=== PATIENT | male | born 1990 | race Caucasian/White ===

== ENCOUNTER 2023-03-28 11:16 | Inpatient (IN) ==
[2023-03-28] MEDS ORDERED: MORPHINE SULFATE INJ 4 MG ONE (11:25)
[2023-03-28] MEDS ORDERED: ZOFRAN INJ 4 MG VIAL ONE (11:25)
[2023-03-28] MEDS ORDERED: NS 1,000 ML IV 1,000 ML IV ONE (11:30)
[2023-03-28] MEDS ORDERED: ZOFRAN INJ 4 MG VIAL IVP ONE (11:30)
[2023-03-28] MEDS ORDERED: MORPHINE SULFATE INJ 4 MG IVP ONE (11:30)
--- NOTE | 2023-03-28 11:30 | DR.ABDMALE ---
HPI Time seen Time Seen by Provider: 03/28/23 11:29 Complaint Chief Complaint Doctors Comments: 32 y/o male, one of our EMS , presents with sudden onset of upper abdominal pain, worse of LUQ, radiates to left lower chest. Associated with nausea, diaphoresis. feels like needs to move around. Nothing makes it better, nothing makes it worse. No recent illness. Has distant cholecystectomy. Pt given IM toradol, 60 mgs, [employer], no relief. Reviewed Nurses Notes Review: Yes Source History provided by:: patient Mode of arrival Mode of Arrival: Ambulatory PMH PMH Past Medical History: Hypertension Past Surgical History: Yes Surgical History: Cholecystectomy Social History Does patient currently use any type of tobacco product: No Alcohol Use: None Do you use any recreational Drugs:: No ROS Review of Systems Constitutional: Diaphoresis Eyes: No Symptoms Reported ENTM: No Symptoms Reported Respiratoy: No Symptoms Reported Cardiovascular: Chest Pain Gastrointestinal/Abdominal: Abdominal Pain and Nausea Genitourinary: No Symptoms Reported Neurological: No Symptoms Reported Musculoskeletal: No Symptoms Reported Integumentary: No Symptoms Reported All Other Systems: Reviewed and Negative PE Vital Signs Vital Signs: Temp Pulse Resp BP Pulse Ox O2 Del Method 03/28/23 16:15 65 96 03/28/23 16:00 63 92 L 03/28/23 16:00 142/84 03/28/23 15:45 62 92 L 03/28/23 15:45 148/90 03/28/23 15:31 61 98 03/28/23 15:31 150/91 03/28/23 15:30 61 98 03/28/23 15:22 55 L 99 03/28/23 15:22 143/87 03/28/23 15:15 52 L 97 03/28/23 15:00 60 14 98 03/28/23 14:45 59 L 99 03/28/23 14:30 52 L 98 03/28/23 15:32 20 03/28/23 14:15 61 94 L 03/28/23 14:00 54 L 12 92 L 03/28/23 13:45 51 L 13 97 03/28/23 13:39 55 L 12 99 03/28/23 13:39 147/87 03/28/23 13:37 50 L 03/28/23 13:15 54 L 20 03/28/23 13:15 138/85 03/28/23 13:00 49 L 03/28/23 13:00 136/89 03/28/23 13:43 20 03/28/23 12:15 51 L 11 L 99 03/28/23 12:00 49 L 11 L 100 03/28/23 12:00 125/82 03/28/23 11:45 48 L 10 L 99 03/28/23 11:33 119/67 03/28/23 11:33 47 L 13 100 03/28/23 11:30 48 L 13 99 03/28/23 11:28 48 L 20 100 03/28/23 12:18 10 L 03/28/23 11:39 11 L 03/28/23 11:26 98.0 F 51 L 20 124/71 99 Room Air General General Appearance: Alert and In Distress Eyes Eye exam: PERRL and EOMI ENT ENT Exam: Normal Oropharynx and Mucous Membranes Moist Neck Neck Exam: Normal Inspection and Full ROM Chest Chest Inspection: Normal Inspection; negative Tenderness Respiratory Respiratory Exam: Normal Lung Sounds Bilat; negative Accessory Muscle Use or Respiratory Distress Cardiovascular Cardiovascular Exam: Regular Rate, Normal Rhythm and Normal Heart Sounds Abdominal Exam Abdominal Exam: Normal Bowel Sounds, Soft and Tenderness (LUQ, with guarding, mild rebound. ) Back Back Exam: Normal Inspection Extremeties Extremities Exam: Normal Inspection; negative Edema Skin Skin Exam: Diaphoresis (mild) COURSE Treatment Treatment: 32 y/o male with sudden LUQ abdominal pain, shortly [employer]. Seen at PCP's office, given IM toradol without help. W/u initiated. Pt given IV fluids, IV morhine/zofran. No help. Still in severe pain. Given IV diilaudid. Plain CT abd/pelvis - no acute abn, no free air, no stones. Still in pain. Additional IV dilaudid given. CTA abd done, no obvious vascular issues. Still in pain. Labs overall acceptable. Dr Ma consulted, seen in ER. h/o EGD, ? spasm of esophagous/muscle. Pt given IV ativan, finally getting some relief. Will admit, discussed with Dr Michelle. Will heep NPO after MN, EGD in the AM. ROR Labs Reviewed Laboratory Results Reviewed?: Yes Result Diagrams: 03/28/23 11:30 03/28/23 11:30 Laboratory: WBC 12.8 X10^3/uL (3.6-10.0) H 03/28/23 11:30 RBC 5.24 X10^6/uL (4.7-6.0) 03/28/23 11:30 Hgb 15.0 g/dL (13.5-18.0) 03/28/23 11:30 Hct 44.8 % (42.0-54.0) 03/28/23 11:30 MCV 85.5 fL (80.0-100.0) 03/28/23 11:30 MCH 28.6 pg (27.0-34.0) 03/28/23 11:30 MCHC 33.4 g/dL (33.0-35.0) 03/28/23 11:30 RDW 13.5 % (11.6-16.5) 03/28/23 11:30 Plt Count 342 X10^3/uL (150.0-450.0) 03/28/23 11:30 MPV 8.7 fL (7.4-11.0) 03/28/23 11:30 Neut % (Auto) 58.4 % (42.0-75.0) 03/28/23 11:30 Lymph % (Auto) 32.8 % (21.0-51.0) 03/28/23 11:30 [place] % (Auto) 5.4 % (0.0-13.0) 03/28/23 11:30 Eos % (Auto) 2.6 % (0.9-2.9) 03/28/23 11:30 Baso % (Auto) 0.8 % (0.2-1.0) 03/28/23 11:30 Neut # (Auto) 7.5 x10^3/uL (2.2-4.8) H 03/28/23 11:30 Lymph # (Auto) 4.2 X10^3/uL (1.3-2.9) H 03/28/23 11:30 [place] # (Auto) 0.7 x10^3/uL (0.3-0.8) 03/28/23 11:30 Eos # (Auto) 0.3 x10^3/uL (0.0-0.2) H 03/28/23 11:30 Baso # (Auto) 0.1 X10^3/uL (0.0-0.1) 03/28/23 11:30 Absolute Nucleated RBC 0.0 /100WBC 03/28/23 11:30 Sodium 140 mmol/L (136-145) 03/28/23 11:30 Corrected Sodium 141 mmol/L (136-145) 03/28/23 11:30 Potassium 4.1 mmol/L (3.5-5.1) 03/28/23 11:30 Chloride 101 mmol/L (98-107) 03/28/23 11:30 Carbon Dioxide 30.5 mmol/L (21-32) 03/28/23 11:30 BUN 13 mg/dL (7-18) 03/28/23 11:30 Creatinine 0.96 mg/dL (0.70-1.30) 03/28/23 11:30 Est GFR (MDRD) Af Amer > 60 (>60) 03/28/23 11:30 Est GFR (MDRD) Non-Af > 60 (>60) 03/28/23 11:30 Glucose 161 mg/dL (65-99) H 03/28/23 11:30 Lactic Acid 3.5 mmol/L (0.4-2.0) H 03/28/23 16:28 Calcium 8.6 mg/dL (8.5-10.1) 03/28/23 11:30 Corrected Calcium TNP 03/28/23 11:30 Total Bilirubin 0.60 mg/dL (0.2-1.0) 03/28/23 11:30 AST 41 Units/L (15-37) H 03/28/23 11:30 ALT 47 Units/L (12-78) 03/28/23 11:30 Alkaline Phosphatase 120 Units/L (46-116) H 03/28/23 11:30 Troponin I High Sens 5.3 ng/L (4.0-60.0) 03/28/23 14:59 Total Protein 7.6 g/dL (6.4-8.2) 03/28/23 11:30 Albumin 3.9 g/dL (3.4-5.0) 03/28/23 11:30 Globulin 3.7 g/dL (2.5-4.5) 03/28/23 11:30 Albumin/Globulin Ratio 1.1 Ratio (1.1-2.1) 03/28/23 11:30 Lipase 98 Units/L (73-393) 03/28/23 11:30 Lasb overall acceptable - has mildly elevated WBC. Lactic acid up at 3.5. EKG Rate: 51 [place]: Normal Rhythm: SB ST: Normal Opioid Opioid Risk Tool Total: 0 Total Score Risk Category: Low Risk Copyright: Omar CORTES predicting aberrant behaviors Discharge Plan Diagnosis Discharge Problem: Upper abdominal pain Discharge Plan Patient Disposition: ADMITTED INPATIENT Condition: Stable
[2023-03-28 11:34] VITALS: BMI 39.0
[2023-03-28] MEDS ORDERED: NS 1,000 ML IV 1,000 ML ONE (11:41)
--- NOTE | 2023-03-28 11:46 | EKG ---
Test Reason : LUQ abd pain Blood Pressure : */* mmHG Vent. Rate : 51 BPM Atrial Rate : 51 BPM P-R Int : 148 ms QRS Dur : 96 ms QT Int : 468 ms P-R-T Axes : 16 3 27 degrees QTc Int : 431 ms Sinus bradycardia Increased R/S ratio in V1, consider early transition or posterior infarct Abnormal ECG No previous ECGs available Confirmed by Carson Min ([id number]) on 03/30/2023 7:36:45 AM Referred By: Confirmed By: Carson Min
[2023-03-28 11:47] LABS: BASOPHILS # (AUTO) 0.1 X10^3/uL (0.0-0.1); BASOPHILS % (AUTO) 0.8 % (0.2-1.0); EOSINOPHILS # (AUTO) 0.3 x10^3/uL (0.0-0.2); EOSINOPHILS % (AUTO) 2.6 % (0.9-2.9); HEMATOCRIT 44.8 % (42.0-54.0); LYMPHOCYTES # (AUTO) 4.2 X10^3/uL (1.3-2.9); LYMPHOCYTES % (AUTO) 32.8 % (21.0-51.0); MEAN CORPUSCULAR HEMOGLOBIN 28.6 pg (27.0-34.0); MEAN CORPUSCULAR HGB CONC 33.4 g/dL (33.0-35.0); MEAN CORPUSCULAR VOLUME 85.5 fL (80.0-100.0); MEAN PLATELET VOLUME 8.7 fL (7.4-11.0); MONOCYTES # (AUTO) 0.7 x10^3/uL (0.3-0.8); MONOCYTES % (AUTO) 5.4 % (0.0-13.0); NEUTROPHILS # (AUTO) 7.5 x10^3/uL (2.2-4.8); NEUTROPHILS % (AUTO) 58.4 % (42.0-75.0); PLATELET COUNT 342 X10^3/uL (150.0-450.0); RED BLOOD COUNT 5.24 X10^6/uL (4.7-6.0); RED CELL DISTRIBUTION WIDTH 13.5 % (11.6-16.5); WHITE BLOOD COUNT 12.8 X10^3/uL (3.6-10.0)
[2023-03-28 12:03] LABS: ALANINE AMINOTRANSFERASE 47 Units/L (12-78); ALBUMIN 3.9 g/dL (3.4-5.0); ALKALINE PHOSPHATASE 120 Units/L (46-116); BLOOD UREA NITROGEN 13 mg/dL (7-18); CALCIUM 8.6 mg/dL (8.5-10.1); CARBON DIOXIDE 30.5 mmol/L (21-32); CHLORIDE 101 mmol/L (98-107); COR NA(FOR HYPERGLY) 141 mmol/L (136-145); CREATININE 0.96 mg/dL (0.70-1.30); GLUCOSE 161 mg/dL (65-99); LIPASE 98 Units/L (73-393); SODIUM 140 mmol/L (136-145); TOTAL PROTEIN 7.6 g/dL (6.4-8.2); eGFR NON BLACK RACES > 60 (>60)
[2023-03-28] MEDS ORDERED: DILAUDID INJ IVP ONE ×2 (12:07→13:30)
[2023-03-28] MEDS ORDERED: DILAUDID INJ ONE ×3 (12:07→15:13)
[2023-03-28 12:08] LABS: ASPARTATE AMINO TRANSFERASE 41 Units/L (15-37); POTASSIUM 4.1 mmol/L (3.5-5.1)
--- NOTE | 2023-03-28 12:44 | CT ---
HISTORYLUQ PAINSTUDYABDOMEN/PELVIS W/O CONCOMPARISONNone.TECHNIQUEMultiple axial images of the abdomen and pelvis were obtained from the lung bases to the upper thighs without the administration of IV contrast. Dose reduction techniques including Automated Exposure Control (AEC) and adjustment of mA and kV were utilized.FINDINGSLack of IV contrast limits evaluation.There is minimal scattered subsegmental atelectasis. The heart is borderline in size. There is diffuse hepatic steatosis. Status post cholecystectomy. The spleen, pancreas, adrenal glands, and kidneys have a benign noncontrast appearance. Urinary bladder is benign. The prostate is normal in size. Diverticulosis of the colon without evidence of diverticulitis. Submucosal fat deposition in the colon is nonspecific but often idiopathic. The appendix appears normal. Negative for bowel obstruction. Non-atherosclerotic normal caliber abdominal aorta. No pathologic adenopathy. No free air, free fluid, or collection. Chronic mild compression deformities at T11 and T12.IMPRESSIONNo findings to explain the patient's symptoms. No renal calculus or hydronephrosis.Hepatic steatosis.Electronically signed by: Zachary Stubbs (Mar 28, 2023 12:43:47)
[2023-03-28] MEDS ORDERED: OMNIPAQUE 350 MG/ML ONE (13:18)
[2023-03-28] MEDS ORDERED: NS 100 ML IV 100 ML ONE (13:18)
[2023-03-28] MEDS ORDERED: D5 NS 1,000 ML IV 1,000 ML IV ONE (13:41)
[2023-03-28] MEDS: D5 1/2 NS 1,000 ML 1,000 ML IV SCH ×4 (13:47→21:35)
--- NOTE | 2023-03-28 14:34 | CT ---
HISTORYSUDDEN LUQ PAIN, NEG PLAIN CT.STUDYABDOMEN CTACOMPARISONNone.TECHNIQUECTA of the abdomen was obtained from the lung bases to the pelvic inlet after the administration of IV contrast. MIPS images were generated and reviewed. Dose reduction techniques including Automated Exposure Control (AEC) and adjustment of mA and kV were utilized.FINDINGSLung bases demonstrate mild scattered subsegmental atelectasis. The heart is normal in size. There is mild bilateral gynecomastia. There is hepatic steatosis. Status post cholecystectomy. Normal caliber common duct. The spleen, pancreas, adrenal glands, and kidneys have a benign appearance. No AAA or aortic dissection. Atherosclerotic significant disease in the abdominal aorta. The celiac axis is, SMA, bilateral renal arteries, and TRICIA appear patent. Visualized iliac arteries appear patent. Negative for bowel obstruction. Submucosal fat deposition in the colon is nonspecific but often idiopathic. The appendix appears normal. No pathologic adenopathy. No free air, free fluid, or collection. No acute osseous abnormality.IMPRESSIONNo AAA or aortic dissection identified.Hepatic steatosis.Electronically signed by: Zachary Stubbs (Mar 28, 2023 14:33:27)
[2023-03-28] MEDS ORDERED: ATIVAN INJ 2 MG VIAL IVP STA (15:15)
[2023-03-28] MEDS ORDERED: ATIVAN INJ 2 MG VIAL ONE (15:15)
[2023-03-28 15:33] LABS: LACTIC ACID 3.9 mmol/L (0.4-2.0)
[2023-03-28] MEDS ORDERED: ZOFRAN INJ 4 MG VIAL IVP PRN (17:03)
[2023-03-28] MEDS ORDERED: CONSULT PHARMACY - POTASSIUM & MAGNESIUM XX SCH (17:03)
[2023-03-28 18:18] LABS: BILIRUBIN,URINE NEGATIVE (NEGATIVE); BLOOD/HEMOGLOBIN,URINE NEGATIVE (NEGATIVE); GLUCOSE, URINE NEGATIVE (NEGATIVE); KETONES,URINE NEGATIVE (NEGATIVE); LEUKOCYTE ESTERASE ,URINE NEGATIVE (NEGATIVE); NITRITES,URINE NEGATIVE (NEGATIVE); PROTEIN,URINE 1+ (NEGATIVE); UROBILINOGEN,URINE NORMAL (NORMAL)
[2023-03-28 18:30] LABS: APPEARANCE,URINE CLEAR (CLEAR); BACTERIA,URINE NEGATIVE /HPF (NEGATIVE); COLOR,URINE DARK YELLOW (YELLOW); RBC,URINE 0-2 /HPF (0-3); SQUAMOUS EPITHELIAL CELL,UR RARE /HPF (NEGATIVE)
[2023-03-28] MEDS: DILAUDID INJ IVP PRN (19:46)
[2023-03-28] MEDS: ATIVAN INJ 2 MG VIAL IVP PRN (21:35)
[2023-03-29] MEDS: DILAUDID INJ IVP PRN ×6 (00:07→18:29)
[2023-03-29] MEDS: ATIVAN INJ 2 MG VIAL IVP PRN ×3 (02:28→15:30)
[2023-03-29] MEDS: D5 1/2 NS 1,000 ML 1,000 ML IV SCH ×4 (04:16→20:45)
[2023-03-29 05:24] LABS: BASOPHILS % (AUTO) 0.3 % (0.2-1.0); EOSINOPHILS # (AUTO) 0.1 x10^3/uL (0.0-0.2); EOSINOPHILS % (AUTO) 0.4 % (0.9-2.9); HEMATOCRIT 39.9 % (42.0-54.0); HEMOGLOBIN 13.6 g/dL (13.5-18.0); LYMPHOCYTES # (AUTO) 2.6 X10^3/uL (1.3-2.9); LYMPHOCYTES % (AUTO) 18.9 % (21.0-51.0); MEAN CORPUSCULAR HEMOGLOBIN 28.9 pg (27.0-34.0); MEAN CORPUSCULAR VOLUME 85.1 fL (80.0-100.0); MEAN PLATELET VOLUME 8.7 fL (7.4-11.0); MONOCYTES % (AUTO) 6.8 % (0.0-13.0); NEUTROPHILS # (AUTO) 10.3 x10^3/uL (2.2-4.8); NEUTROPHILS % (AUTO) 73.6 % (42.0-75.0); PLATELET COUNT 262 X10^3/uL (150.0-450.0); RED BLOOD COUNT 4.69 X10^6/uL (4.7-6.0); RED CELL DISTRIBUTION WIDTH 13.7 % (11.6-16.5); WHITE BLOOD COUNT 13.9 X10^3/uL (3.6-10.0)
[2023-03-29 05:42] LABS: ALANINE AMINOTRANSFERASE 44 Units/L (12-78); ALBUMIN 3.3 g/dL (3.4-5.0); ALKALINE PHOSPHATASE 104 Units/L (46-116); ASPARTATE AMINO TRANSFERASE 22 Units/L (15-37); BLOOD UREA NITROGEN 10 mg/dL (7-18); CALCIUM 7.7 mg/dL (8.5-10.1); CARBON DIOXIDE 29.8 mmol/L (21-32); CHLORIDE 101 mmol/L (98-107); COR CA(FOR HYPOALB) 8.3 mg/dL (8.5-10.1); COR NA(FOR HYPERGLY) 138 mmol/L (136-145); CREATININE 0.98 mg/dL (0.70-1.30); GLUCOSE 115 mg/dL (65-99); POTASSIUM 3.6 mmol/L (3.5-5.1); SODIUM 138 mmol/L (136-145); TOTAL PROTEIN 6.6 g/dL (6.4-8.2); eGFR NON BLACK RACES > 60 (>60)
[2023-03-29] MEDS ORDERED: DIPRIVAN VIAL 20 ML ONE (10:22)
[2023-03-29] MEDS ORDERED: VERSED ONE (10:50)
[2023-03-29] MEDS ORDERED: PEPCID 20 MG VIAL ONE (10:51)
[2023-03-29] MEDS: REGLAN TAB 10 MG PO SCH ×2 (13:00→21:07)
--- NOTE | 2023-03-29 15:53 | DR.H&P ---
H&P - History & Physical for Day of: H&P Date: 03/28/23 - Chief Complaint Chief Complaint: ABDOMINAL PAIN, NAUSEA - History of Present Illness History of Present Illness: IS A 32 YEAR OLD PATIENT OF OURS. HE HAS A PMH OF HTN AND CHOLECYSTECTOMY. HE PRESENTED TO THE ER WITH COMPLAINTS OF SUDDEN ONSET UPPER ABDOMINAL PAIN. HE REPORTED THAT PAIN IS WORSE IN THE LEFT UPPER QUADRANT. PAIN RADIATES TO HTE LEFT LOWER CHEST. PAIN IS ASSOCIATED WITH NAUSEA AND DIAPHORESIS. HE REPORTS THAT NOTHING MAKES PAIN BETTER AND NOTHING MAKES IT WORSE. HE DENIES RECENT ILLNESS. ON ARRIVAL TO THE HOSPITAL, HIS VITALS WERE: 98.0-51-20-99%-124/71. LABS WERE OBTAINED. WBC 12.8, RBC 5.24, HGB 15.0, HCT 44.8, PLT COUNT 342, SODIUM 140, POTASSIUM 4.1, CHLORIDE 101, BUN 13, CREATININE 0.96, GLUCOSE 161, CALCIUM 8.6, TOTAL BILI 0.60, AST 41, ALT 47, ALK PHOS 120, TROPNIN <4.0, TOTAL PROTEIN 7.6, ALBUMIN 3.9, LIPASE 98. BLOOD CULTURES WERE SET UP. AN ABDOMEN/PELVIS CT WITHOUT CONTRAST WAS OBTAINED AND REVEALED: Lack of IV contrast limits evaluation. There is minimal scattered subsegmental atelectasis. The heart is borderline in size. There is diffuse hepatic steatosis. Status post cholecystectomy. The spleen, pancreas, adrenal glands, and kidneys have a benign noncontrast appearance. Urinary bladder is benign. The prostate is normal in size. Diverticulosis of the colon without evidence of diverticulitis. Submucosal fat deposition in the colon is nonspecific but often idiopathic. The appendix appears normal. Negative for bowel obstruction. Non-atherosclerotic normal caliber abdominal aorta. No pathologic adenopathy. No free air, free fluid, or collection. Chronic mild compression deformities at T11 and T12. EKG WAS OBTAINED AND REVEALED: SINUS BRADYCARDIA WITH HR BPM. ABDOMEN CTA WAS OBTAINED AND REVEALED: No AAA or aortic dissection Identified. Hepatic steatosis. IN THE ER, HE WAS GIVEN A NORMAL SALINE BOLUS, MORPHINE 4MG IV X 1 DOSE, ZOFRAN 4MG IV X 1 DOSE, DILAUDID 1MG IV X 2 DOSES, ATIVAN 2MG IV X 1 DOSE. HE ADMITTED TO SLIGHT IMPROVEMENT IN SYMPTOMS AFTER ALL MEDICATIONS WERE GIVEN. WE ADMITTED PATIENT TO THE HOSPITAL FOR FURTHER EVALUATION AND TREATMENT OF ABDOMINAL PAIN AND NAUSEA. WE CONSULTED . HE PLANS TO DO AN EGD IN THE MORNING. WE ARE IN AGREEMENT WITH PLANS. HE WAS STARTED ON D51/2 NS AT 125 ML/HR, DILAUDID 1MG IV Q4H PRN, ATIVAN 1MG IV Q4H PRN, ZOFRAN 4MG IV Q6H PRN, PROTONIX 40MG IV BID, AND PEPCID 20MG IV BID. AFTER HIS EGD, WE WILL RESUME HIS HOME MEDICATIONS OF TRIAMTERENE-HCTZ, LAMISIL, VITAMIN D3, CETIRIZINE, AND SINGULAIR. WE WILL HOLD HIS METOPROLOL FOR NOW DUE TO BRADYCARDIA. OTHERWISE, WE WILL FOLLOW-UP WITH AM LABS AND CONTINUE TO MONITOR. TIME SPENT ON CLINICAL ASSESSMENT, REVIEWING LABS AND IMAGING, DECISION MAKING, AND DOCUMENTATION GREATER THAN 75 MINUTES. - Past Medical History Past Medical History: Hypertension - Past Surgical History Surgical History: Cholecystectomy - Family History Family Medical History: Diabetes Mellitus, Cancer, Coronary Artery Disease, Hypertension - Social History Does patient currently use any type of tobacco product: No Have you used tobacco products in the last 12 months: No Type of Tobacco Use: None Does any household member use tobacco: No Alcohol Use: None Drug Use: None - Review of Systems Constitutional: No Symptoms Reported Eyes: No Symptoms Reported ENT: No Symptoms Reported Respiratory: No Symptoms Reported Cardiovascular: No Symptoms Reported Gastrointestinal: Nausea, Abdominal Pain. denies: Diarrhea, Constipation, Melena, Hematochezia Genitourinary: No Symptoms Reported Musculoskeletal: No Symptoms Reported Skin: No Symptoms Reported Neurological: Weakness - Physical Exam Vital Signs: Vital Signs Temperature 97.2 F Temperature 98.6 F Temperature 98.6 F Pulse Rate [Right Radial] 93 Pulse Rate 98 Pulse Rate 98 Pulse Rate 91 Pulse Rate 91 Pulse Rate 95 Pulse Rate 92 Pulse Rate 95 Pulse Rate 96 Pulse Rate 92 Pulse Rate 91 Pulse Rate 92 Pulse Rate 98 Pulse Rate 92 Pulse Rate 92 Pulse Rate 93 Pulse Rate 92 Pulse Rate 91 Pulse Rate 90 Pulse Rate 98 Pulse Rate 93 Pulse Rate 93 Pulse Rate 95 Respiratory Rate 21 Respiratory Rate 13 Respiratory Rate 24 Respiratory Rate 13 Respiratory Rate 13 Respiratory Rate 13 Respiratory Rate 14 Respiratory Rate 16 Respiratory Rate 19 Respiratory Rate 16 Respiratory Rate 18 Respiratory Rate 25 Respiratory Rate 23 Respiratory Rate 16 Respiratory Rate 13 Respiratory Rate 13 Respiratory Rate 24 Respiratory Rate 24 Respiratory Rate 21 Respiratory Rate 22 Respiratory Rate 24 Respiratory Rate 15 Respiratory Rate 15 Respiratory Rate 15 Respiratory Rate 24 Blood Pressure [Right Arm] 120/58 Blood Pressure 149/81 Blood Pressure 125/83 Blood Pressure 143/72 Blood Pressure 117/77 Blood Pressure 115/86 Blood Pressure 134/85 Blood Pressure 104/65 Blood Pressure 120/68 Blood Pressure 120/68 O2 Sat by Pulse Oximetry 95 O2 Sat by Pulse Oximetry 97 O2 Sat by Pulse Oximetry 96 O2 Sat by Pulse Oximetry 99 O2 Sat by Pulse Oximetry 100 O2 Sat by Pulse Oximetry 99 O2 Sat by Pulse Oximetry 99 O2 Sat by Pulse Oximetry 97 O2 Sat by Pulse Oximetry 99 O2 Sat by Pulse Oximetry 94 O2 Sat by Pulse Oximetry 93 O2 Sat by Pulse Oximetry 95 O2 Sat by Pulse Oximetry 93 O2 Sat by Pulse Oximetry 93 O2 Sat by Pulse Oximetry 92 O2 Sat by Pulse Oximetry 91 O2 Sat by Pulse Oximetry 92 O2 Sat by Pulse Oximetry 90 O2 Sat by Pulse Oximetry 97 O2 Sat by Pulse Oximetry 95 O2 Sat by Pulse Oximetry 95 O2 Sat by Pulse Oximetry 95 O2 Sat by Pulse Oximetry 96 Oriented: Normal Eyes: Normal Ear: Normal Nose: Normal Throat: Normal Respiratory: Clear Throughout Cardiovascular: Normal : Normal Auscultation: Bowel Sounds: Normal Palpation: Normal Tenderness: RUQ, LUQ, Moderate Skin: Normal Musculoskeletal: Normal Psychiatric: Normal Mood Description: Calm Affect: Normal Speech Pattern: Clear - Assessment/Plan (1) Abdominal pain Qualifiers: Abdominal location: upper abdomen, unspecified Qualified Code(s): R10.10 - Upper abdominal pain, unspecified Status: Acute Plan: ADMIT, EGD, D51/2 NS AT 125 ML/HR, DILAUDID 1MG IV Q4H PRN, ATIVAN 1MG IV Q4H PRN, ZOFRAN 4MG IV Q6H PRN, PROTONIX 40MG IV BID, AND PEPCID 20MG IV BID. RESUME HOME MEDS (2) Nausea and vomiting Qualifiers: Vomiting type: unspecified Qualified Code(s): R11.2 - Nausea with vomiting, unspecified Status: Acute (3) HTN (hypertension) Qualifiers: Hypertension type: primary hypertension Qualified Code(s): I10 - Essential (primary) hypertension Status: Chronic Plan: RESUME TRIAMTERENE-HCTZ, CONTINUE TO MONITOR (4) Allergic rhinitis Qualifiers: Allergic rhinitis trigger: unspecified Allergic rhinitis seasonality: unspecified Qualified Code(s): J30.9 - Allergic rhinitis, unspecified Status: Acute Plan: CONTINUE CETIRIZINE AND SINGULAIR, CONTINUE TO MONITOR - Allergies Allergies/Adverse Reactions: Allergies Allergy/AdvReac Type Severity Reaction Status Date / Time red dye Allergy Verified 03/28/23 17:03 - Medications Home Medications: Home Medications Medication Instructions Recorded Confirmed cetirizine 10 mg tablet 10 mg PO DAILY 05/05/16 03/28/23 montelukast 10 mg tablet 10 mg PO HS 05/05/16 03/28/23 (Singulair) cholecalciferol (vitamin D3) 125 125 mcg PO QDAY 03/28/23 03/28/23 mcg (5,000 unit) tablet (Vitamin D3) famotidine 40 mg tablet (Pepcid) 40 mg PO BID 03/28/23 03/28/23 metoprolol tartrate 50 mg tablet 50 mg PO BID 03/28/23 03/28/23 pantoprazole 40 mg tablet,delayed 40 mg PO 2XD 03/28/23 03/28/23 release (Protonix) terbinafine HCl 250 mg tablet 250 mg PO HS 03/28/23 03/28/23 triamterene 37.5 1 tab PO QAM 03/28/23 03/28/23 mg-hydrochlorothiazide 25 mg tablet
[2023-03-29] MEDS: PEPCID 20 MG VIAL 20 MG in NS 50 ML IV 50 ML IV SCH (20:45)
[2023-03-29] MEDS: PROTONIX INJ 40 MG VIAL IVP SCH (20:53)
[2023-03-29] MEDS ORDERED: SINGULAIR TAB 10 MG PO SCH (21:00)
[2023-03-29] MEDS ORDERED: TERBINAFINE HCL 250 MG PO SCH (21:00)
[2023-03-30] MEDS: DILAUDID INJ IVP PRN (00:08)
[2023-03-30] MEDS: D5 1/2 NS 1,000 ML 1,000 ML IV SCH ×2 (02:16→04:52)
[2023-03-30 04:52] VITALS: TEMP 98.6
[2023-03-30] MEDS: REGLAN TAB 10 MG PO SCH (05:27)
[2023-03-30 06:37] LABS: BASOPHILS % (AUTO) 0.4 % (0.2-1.0); EOSINOPHILS # (AUTO) 0.1 x10^3/uL (0.0-0.2); EOSINOPHILS % (AUTO) 1.1 % (0.9-2.9); HEMOGLOBIN 12.9 g/dL (13.5-18.0); LYMPHOCYTES # (AUTO) 2.4 X10^3/uL (1.3-2.9); LYMPHOCYTES % (AUTO) 21.7 % (21.0-51.0); MEAN CORPUSCULAR HEMOGLOBIN 29.1 pg (27.0-34.0); MEAN CORPUSCULAR VOLUME 85.6 fL (80.0-100.0); MEAN PLATELET VOLUME 8.9 fL (7.4-11.0); MONOCYTES # (AUTO) 0.8 x10^3/uL (0.3-0.8); MONOCYTES % (AUTO) 7.2 % (0.0-13.0); NEUTROPHILS # (AUTO) 7.6 x10^3/uL (2.2-4.8); NEUTROPHILS % (AUTO) 69.6 % (42.0-75.0); PLATELET COUNT 227 X10^3/uL (150.0-450.0); RED BLOOD COUNT 4.44 X10^6/uL (4.7-6.0); RED CELL DISTRIBUTION WIDTH 13.5 % (11.6-16.5); WHITE BLOOD COUNT 10.9 X10^3/uL (3.6-10.0)
[2023-03-30 06:48] LABS: ALANINE AMINOTRANSFERASE 38 Units/L (12-78); ALBUMIN 2.9 g/dL (3.4-5.0); ALKALINE PHOSPHATASE 102 Units/L (46-116); ASPARTATE AMINO TRANSFERASE 22 Units/L (15-37); BLOOD UREA NITROGEN 5 mg/dL (7-18); CALCIUM 7.6 mg/dL (8.5-10.1); CHLORIDE 101 mmol/L (98-107); COR CA(FOR HYPOALB) 8.5 mg/dL (8.5-10.1); CREATININE 0.92 mg/dL (0.70-1.30); GLUCOSE 109 mg/dL (65-99); POTASSIUM 3.1 mmol/L (3.5-5.1); SODIUM 138 mmol/L (136-145); TOTAL PROTEIN 6.4 g/dL (6.4-8.2); eGFR NON BLACK RACES > 60 (>60)
[2023-03-30] MEDS ORDERED: CONSULT PHARMACY - POTASSIUM & MAGNESIUM XX SCH (07:00)
[2023-03-30] MEDS: PEPCID 20 MG VIAL 20 MG in NS 50 ML IV 50 ML IV SCH (08:28)
[2023-03-30] MEDS: PROTONIX INJ 40 MG VIAL IVP SCH (08:28)
[2023-03-30] MEDS: POTASSIUM CHLORIDE LIQ PO SCH ×2 (08:29→10:14)
[2023-03-30] MEDS ORDERED: MAXZIDE 37.5/25 MG PO SCH (09:00)
[2023-03-30] MEDS ORDERED: VITAMIN D3 125 mcg (5,000 UNITS) PO SCH (09:00)
[2023-03-30] MEDS ORDERED: ZyrTEC TAB 10 MG PO SCH (09:00)
[2023-03-30 09:10] VITALS: BP 129/79; PULSE 94; RESP 13; O2SAT 93
== END 2023-03-30 11:17 | disposition home or self-care (01) | DRG 313 ==
LOC: ER 11:16 → ICU 16:33
PROVIDERS: ADMIT Internal Medicine; ATTEND Internal Medicine
DX: K22.4 Dyskinesia of esophagus; R10.84 Generalized abdominal pain; K29.00 Acute gastritis without bleeding; I10 Essential (primary) hypertension; K31.84 Gastroparesis; J30.9 Allergic rhinitis, unspecified; R11.2 Nausea with vomiting, unspecified; R07.89 Other chest pain; R10.13 Epigastric pain